=== PATIENT | female | born 2000 | race Caucasian/White ===

== ENCOUNTER 2018-09-17 13:38 | Emergency (ER) | payer BC ==
[~2018-09-17] VITALS: Ht 175.3 cm; Wt 110.5 kg
[2018-09-17 13:59] VITALS: TEMP 98.4
[2018-09-17] MEDS ORDERED: SPRINTEC 35 MCG1 TAB PO (14:25)
[2018-09-17 14:37] LABS: COLLECTION METHOD CLEAN CATCH
[2018-09-17 14:49] LABS: MUCOUS Present /lpf; PH 5 (5-8); URINE APPEARANCE Hazy; URINE BACTERIA None Seen /hpf; URINE BILIRUBIN Negative (NEGATIVE); URINE BLOOD Negative (NEGATIVE); URINE COLOR Yellow; URINE GLUCOSE Negative (NEGATIVE); URINE KETONE Negative (NEGATIVE); URINE LEUKOCYTE ESTERASE Trace (NEGATIVE); URINE NITRATE Negative (NEGATIVE); URINE PROTEIN(semi-quant) Negative (NEGATIVE); URINE RBC 0-2 /hpf; URINE UROBILINOGEN Negative (NEGATIVE)
[2018-09-17 16:18] LABS: ALBUMIN 3.9 gm/dL (3.5-5.0); BILIRUBIN,TOTAL 0.6 mg/dL (0.0-1.0); CALCIUM 9.1 mg/dL (8.4-10.2); CREATININE, serum 0.56 (0.52-1.25); POTASSIUM 3.9 mmol/L (3.4-5.0); TOTAL PROTEIN 7.1 gm/dL (6.4-8.2)
[2018-09-17 16:21] LABS: BASO % 0.5 % (0.0-2.0); EOS # 0.2 (0.0-0.7); EOS % 1.8 % (0-4.0); GRAN # 5.2 (1.4-6.5); GRAN % 62.6 % (42.2-75.2); HEMATOCRIT 37.9 % (35.0-45.0); HEMOGLOBIN 12.3 g/dl (12.0-15.0); LYMPH # 2.5 (1.2-3.4); LYMPH % 29.5 % (20.0-51.0); MEAN CELL VOLUME 84 fl (80.0-95.0); MEAN CORPUSCULAR HEMOGLOBIN 27 pg (26.0-32.0); MEAN CORPUSCULAR HGB CONC 33 g/dl (33.0-37.0); MEAN PLATELET VOLUME 10.1 fl (7.4-10.4); MONO # 0.4 (0.1-0.6); MONO % 5.2 % (1.7-9.3); PLATELET COUNT 267 K/mm3 (130-400); RED BLOOD COUNT 4.49 M/mm3 (4.10-5.30); REDCELL DISTRIBUTION WIDTH-CV 13.2 % (11.5-14.5)
[2018-09-17] MEDS ORDERED: BACTRIM DS 8001 TAB PO (17:55)
[2018-09-17] MEDS ORDERED: NORCO 325 MG-51 TAB PO (17:55)
[2018-09-17 20:02] VITALS: BP 120/66; PULSE 79
== END 2018-09-17 20:04 | disposition home or self-care (01) ==
LOC: COL.ER 13:38
PROVIDERS: Nurse Practitioner Primary Care
DX: N39.0 Urinary tract infection, site not specified (principal); Z90.49 Acquired absence of other specified parts of digestive tract
CPT/HCPCS: J1885; J2270; J3360

== ENCOUNTER 2020-04-02 16:49 | Emergency (ER) | payer BC ==
[~2020-04-02] VITALS: Ht 175.3 cm; Wt 113.6 kg
[~2020-04-02 16:49] MED LIST: BACTRIM DS 8001 TAB PO; NORCO 325 MG-51 TAB PO; SPRINTEC 35 MCG1 TAB PO
[2020-04-02 16:59] VITALS: TEMP 98.6
[2020-04-02 17:49] LABS: COLLECTION METHOD CLEAN CATCH
[2020-04-02 17:53] LABS: BASO % 0.4 % (0.0-2.0); EOS # 0.3 (0.0-0.7); EOS % 3.4 % (0-4.0); GRAN # 4.7 (1.4-6.5); HEMATOCRIT 37.6 % (37.0-47.0); HEMOGLOBIN 12.2 g/dl (12.5-16.0); LYMPH # 2.8 (1.2-3.4); LYMPH % 33.6 % (20.0-51.0); MEAN CELL VOLUME 81 fl (80.0-100.0); MEAN CORPUSCULAR HEMOGLOBIN 26 pg (27.0-31.0); MEAN CORPUSCULAR HGB CONC 32 g/dl (33.0-37.0); MEAN PLATELET VOLUME 9.9 fl (7.4-10.4); MONO # 0.5 (0.1-0.6); MONO % 6.5 % (1.7-9.3); PLATELET COUNT 269 K/mm3 (130-400); RED BLOOD COUNT 4.65 M/mm3 (4.10-5.30); REDCELL DISTRIBUTION WIDTH-CV 14.6 % (11.5-14.5)
[2020-04-02 17:56] LABS: MUCOUS Present /lpf; PH 5 (5-8); URINE APPEARANCE Hazy; URINE BACTERIA None Seen /hpf; URINE BILIRUBIN Negative (NEGATIVE); URINE BLOOD Negative (NEGATIVE); URINE COLOR Yellow; URINE GLUCOSE Negative (NEGATIVE); URINE KETONE 1+ (NEGATIVE); URINE LEUKOCYTE ESTERASE Negative (NEGATIVE); URINE NITRATE Negative (NEGATIVE); URINE PROTEIN(semi-quant) Negative (NEGATIVE); URINE UROBILINOGEN Negative (NEGATIVE)
[2020-04-02 18:28] LABS: ALBUMIN 4.4 gm/dL (3.5-5.0); BILIRUBIN,TOTAL 0.9 mg/dL (0.0-1.0); C-REACTIVE PROTEIN 3.9 mg/dL (0.0-0.9); CALCIUM 9.2 mg/dL (8.4-10.2); CREATININE, serum 0.6 (0.52-1.25); POTASSIUM 3.5 mmol/L (3.4-5.0); TOTAL PROTEIN 7.7 gm/dL (6.4-8.2)
[2020-04-02 21:20] VITALS: BP 120/80; PULSE 80
== END 2020-04-02 21:20 | disposition home or self-care (01) ==
LOC: COL.ER 16:49
PROVIDERS: Nurse Practitioner Primary Care
DX: R10.31 Right lower quadrant pain (principal); Z90.49 Acquired absence of other specified parts of digestive tract; Z32.02 Encounter for pregnancy test, result negative
CPT/HCPCS: J7030

== ENCOUNTER 2021-06-24 17:32 | Outpatient (CLI) | payer BC ==
[~2021-06-24] VITALS: Ht 172.7 cm; Wt 116.4 kg
--- NOTE | 2021-06-24 17:40 | NUR ---
Patient ambulatory to LR3 with spouse, changed into gown, FHR/TOCO monitors applied. Patient states "Tuesday night I started having sharp pains in my vagina and then went away and came back this morning, Madelin had a headache, some burning with peeing, and threw up over lunch, and have had a cough". Denies any leaking of fluid, vaginal bleeding, or regular contractions. Plan of care discussed. SVE 0-1/thick/high Roles at nurses station and orders for UA, CBC, 1000ml of NS-500bolus, 1g of tylenol. Update with results. 1819: IV started in right hand, lab obtained, flushed. Report given to Naty WELSH.
[2021-06-24] MEDS ORDERED: PRENATAL TABLET PO (17:56)
[2021-06-24] MEDS ORDERED: TYLENOL 500MG500 MG PO (17:57)
[2021-06-24] MEDS ORDERED: PROBIOTIC BLEN1 EACH PO (17:57)
[2021-06-24] MEDS ORDERED: ASPIRIN 81M81 MG/TA2 PO (17:57)
[2021-06-24 18:15] VITALS: BP 119/57; PULSE 133; TEMP 101.7
[2021-06-24 18:28] LABS: COLLECTION METHOD CLEAN CATCH
[2021-06-24 18:30] VITALS: PULSE 122
[2021-06-24 18:34] LABS: BASO % 0.3 % (0.0-2.0); EOS % 0.3 % (0.0-4.0); GRAN # 6.7 K/mm3 (1.4-6.5); GRAN % 87.1 % (42.2-75.2); HEMOGLOBIN 10.5 g/dl (12.5-16.0); LYMPH # 0.5 K/mm3 (1.2-3.4); LYMPH % 6.8 % (20.0-51.0); MEAN CELL VOLUME 85 fl (80.0-100.0); MEAN CORPUSCULAR HEMOGLOBIN 29 pg (27-31); MEAN CORPUSCULAR HGB CONC 34 g/dl (33.0-37.0); MEAN PLATELET VOLUME 10.2 fl (7.4-10.4); MONO # 0.4 K/mm3 (0.1-0.6); MONO % 5.2 % (1.7-9.3); PLATELET COUNT 196 K/mm3 (130-400); RED BLOOD COUNT 3.68 M/mm3 (4.10-5.30); REDCELL DISTRIBUTION WIDTH-CV 13.4 % (11.5-14.5)
[2021-06-24 18:35] LABS: HEMATOCRIT 31.2 % (37.0-47.0)
[2021-06-24 18:37] LABS: MUCOUS Present (NOT PRESENT); PH 7 (5-8); SQUAMOUS EPITHELIAL 0-2 /hpf (0-10); URINE APPEARANCE Hazy (CLEAR/HAZY); URINE BACTERIA None Seen /hpf (NONE SEEN); URINE BILIRUBIN Negative (NEGATIVE); URINE BLOOD Negative (NEGATIVE); URINE COLOR Yellow (YELLOW); URINE GLUCOSE Negative (NEGATIVE); URINE KETONE 1+ (NEGATIVE); URINE LEUKOCYTE ESTERASE 1+ (NEGATIVE); URINE NITRATE Negative (NEGATIVE); URINE PROTEIN(semi-quant) Negative (NEGATIVE); URINE RBC 0-2 /hpf (0-2); URINE UROBILINOGEN Negative (NEGATIVE); URINE WBC 0-2 /hpf (0-2)
--- NOTE | 2021-06-24 18:58 | NUR ---
1857- PT UP TO BATHROOM, LR FLUIDS INFUSING, TYLENOL PO GIVEN. PT UP DATED ON PLAN OF CARE AND QUESTIONS ANSWERED. 1939- ROLES AT DESK AND IS UPDATED ON HOW PT IS CURRENTLY FEELING. TEMP 99.8. REVIEWS EFM STRIP AND LABWORK, ORDERS RECEIVED. 1999- EFM OFF FOR DISMISSAL. PT UP TO BATHROOM. 2034- DISMISSAL INSTRUCTIONS GIVEN AND PT VERBALIZES UNDERSTANDING. IV SITE DC'D WITH CANULA INTACT. PT DENIES FURTHER NEEDS OR QUESTIONS. 2044- PT DISMISSED TO HOME AMBULATORY ACCOMPANIED BY .
[2021-06-24 19:00] VITALS: PULSE 122
[2021-06-24 19:30] VITALS: PULSE 125
[2021-06-24 20:00] VITALS: PULSE 114
== END 2021-06-24 20:45 | disposition home or self-care (01) ==
LOC: LDRO 17:32 → LDR 17:50 → LDRO 20:45
PROVIDERS: Obstetrics & Gynecology
DX: O26.892 Other specified pregnancy related conditions, second trimester (principal); R10.2 Pelvic and perineal pain; R51.9 Headache, unspecified; Z3A.26 26 weeks gestation of pregnancy
CPT/HCPCS: OP; J7030

== ENCOUNTER 2021-08-02 22:05 | Outpatient (CLI) | payer BC ==
[~2021-08-02] VITALS: Ht 175.3 cm; Wt 112.3 kg
[~2021-08-02 22:05] MED LIST changes: +ASPIRIN 81M81 MG/TA2 PO; +PRENATAL TABLET PO; +PROBIOTIC BLEN1 EACH PO; +TYLENOL 500MG500 MG PO
--- NOTE | 2021-08-02 22:10 | NUR ---
2210- PT PRESENTS TO LDR COMPLAINING OF DECREASED MOVEMENT X3 HOURS, AMBULATORY TO ROOM LR4, TO BED. 2212- EFM X2 APPLIED. PT DENIES LEAKING FLUID, VAGINAL BLEEDING, OR CONTRACTIONS. STATES SHE HAS BEEN TRYING TO DO HER KICK COUNTS THIS EVENING WITH A TOTAL OF 5 MOVEMENTS IN 3 HOURS. SHE HAS TRIED DRINKING WATER AND APPLE JUICE WITH NO IMPROVEMENT. 2220- DURING FIRST 8 MINUTES OF MONITORING, NURSE HAS BEEN AT BEDSIDE AND HEARD 3 MOVEMENTS ON MONITOR. PT REPLIES "NOT REALLY" WHEN ASKED IF SHE FELT THE MOVEMENTS. NURSING ADMISSION HISTORY AND ASSESSMENT COMPLETE. 2230- 2 MORE MOVEMENTS HEARD ON MONITOR BY THIS TIME. PT REPLIES "KIND OF" WHEN ASKED IF SHE FELT THESE MOVEMENTS. 2234- DR ROBBINS CALLED CHARTED, ORDERS RECEIVED FOR DISMISSAL TO HOME. 2240- PT OFF MONITORS FOR DISMISSAL, KICK COUNTS DISCUSSED IN DEPTH AND QUESTIONS ANSWERED. 2250- DISMISSAL INSTRUCTIONS GIVEN AND PT VERBALIZES UNDERSTANDING. PT DISMISSED TO HOME AMBULATORY ACCOMPANIED BY SPOUSE.
[2021-08-02 22:40] VITALS: BP 125/74; PULSE 83; TEMP 98.2
== END 2021-08-02 22:50 | disposition home or self-care (01) ==
LOC: LDRO 22:05
DX: O62.9 Abnormality of forces of labor, unspecified (principal); Z3A.32 32 weeks gestation of pregnancy

== ENCOUNTER 2021-09-04 11:16 | Outpatient (CLI) | payer BC ==
[~2021-09-04] VITALS: Ht 172.7 cm; Wt 115.9 kg
[2021-09-04] VITALS (8 sets, daily range): BP systolic 111–140; BP diastolic 58–80; PULSE 84–106; TEMP 98.5
--- NOTE | 2021-09-04 11:25 | NUR ---
Presents to L&D, ambulatory, with concerns for leaking of fluid for 3 days. Reports recent sexual intercourse within past 48 hours, denies having had to wear a marlon pad. Reports she had some spotting following SVE on Tuesday's appointment. Discussed that she may experience some spotting again after today's exam. Amnitrace swab explained to patient, as well as unable to use gel with SVE. Verbalizes understanding. C/O some pressure when she is walking, states, "it feels like she is going to drop out." Following SVE (/-3, dry), discussed head is not yet well engaged. Denies any urinary symptoms, fever, chills. Patient reports they were supposed to check protien in urine at last exam, but office forgot. Urine collected in case wanting to check protein, as noted initial slightly elevated BP, and 1-2 plus pitting edema in legs bilat. Patient denies any headache or right upper gastric pain.
--- NOTE | 2021-09-04 12:33 | NUR ---
Allowed off of EFM at this time, after noting Category I reactive monitor strip. Importance of adequate hydration stressed, as noted, patient drank 1.5 jugs of water prior to obtaining reactive strip. Verbalizes understanding.
== END 2021-09-04 12:35 | disposition home or self-care (01) ==
LOC: LDRO 11:16
DX: Z34.93 Encounter for supervision of normal pregnancy, unspecified, third trimester (principal); Z3A.36 36 weeks gestation of pregnancy

== ENCOUNTER 2021-09-10 17:19 | Outpatient (CLI) | payer BC ==
[~2021-09-10] VITALS: Ht 172.7 cm; Wt 117.3 kg
[2021-09-10 17:40] VITALS: BP 123/70; PULSE 81; TEMP 98.4
--- NOTE | 2021-09-10 17:46 | NUR ---
1740 PATIENT HERE FROM HOME. STATES HAS BEEN HAVING CONTRACTIONS FOR SEVERAL DAYS BUT IS FEELING TONS OF PRESSURE. ASSESSMENT COMPLETED. SVE BY Renato THOMAS RN. /-2 BAG OF WATER FELT. NO BLEEDING NOTED. DR DE LOS SANTOS CALLED AND UPDATED AND ORDERS TO WATCH FOR HOUR IF NO CHANGES MAY DISMISS TOT HOME.
[2021-09-10 18:15] VITALS: BP 107/57; PULSE 81; TEMP 97.6
--- NOTE | 2021-09-10 18:48 | NUR ---
PT MAYBE DISCHARGED TO HOME WITH LABOR PRECAUTIONS/INSTRUCTIONS. RETURN IF LEAKING FLUID, SROM, BLEEDING. REGULAR STRONG UC'S.
[2021-09-10 18:57] VITALS: BP 119/69; PULSE 89; TEMP 98.3
== END 2021-09-10 19:20 | disposition home or self-care (01) ==
LOC: LDRO 17:19 → LDR 17:40 → LDRO 19:20
DX: O62.9 Abnormality of forces of labor, unspecified (principal); Z3A.37 37 weeks gestation of pregnancy

== ENCOUNTER 2021-09-14 14:30 | Outpatient (CLI) | payer BC ==
[~2021-09-14] VITALS: Ht 172.7 cm; Wt 117.3 kg
[2021-09-14 14:45] VITALS: BP 130/77; PULSE 93; TEMP 97.9
[2021-09-14 15:00] VITALS: BP 127/75; PULSE 93
[2021-09-14 15:15] VITALS: BP 125/75; PULSE 100
[2021-09-14 15:30] VITALS: BP 120/72; PULSE 84
[2021-09-14 15:45] VITALS: BP 124/73; PULSE 84
== END 2021-09-14 16:15 | disposition home or self-care (01) ==
LOC: LDRO 14:30 → LDR 14:45 → LDRO 16:15
DX: O36.8130 Decreased fetal movements, third trimester, not applicable or unspecified (principal); Z3A.38 38 weeks gestation of pregnancy
CPT/HCPCS: OP; J7120

== ENCOUNTER 2021-09-19 23:10 | Outpatient (CLI) | payer BC ==
[~2021-09-19] VITALS: Ht 177.8 cm; Wt 117.7 kg
[2021-09-19 00:05] VITALS: BP 130/73; PULSE 93; TEMP 97.9
[2021-09-20 00:12] VITALS: TEMP 97.9
[2021-09-20 00:30] VITALS: BP 122/66; PULSE 84
[2021-09-20] MEDS ORDERED: MOTRIN 800800 MG/TAB PO (12:15)
== END 2021-09-20 01:40 ==
LOC: LDRO 23:10
DX: O62.9 Abnormality of forces of labor, unspecified (principal); Z3A.00 Weeks of gestation of pregnancy not specified

== ENCOUNTER 2021-09-20 07:00 | Inpatient (IN) | payer BC ==
[~2021-09-20] VITALS: Ht 177.8 cm; Wt 117.7 kg
[2021-09-20] VITALS (27 sets, daily range): BP systolic 105–136; BP diastolic 51–90; PULSE 70–116; TEMP 97.8–98.3
--- NOTE | 2021-09-20 08:30 | NUR ---
0758 PATIENT HERE FROM HOME. STATES CONTRACTIONS ARE GETTING MORE INTENSE. EFM FHT 130 BABY VERY ACTIVE. OCCASIONAL CONTRACTIONS NOTED. SVE /-[address] HUNTER CALLED AND ORDERS TO ADMIT TO LABOR.
[2021-09-20 08:33] LABS: BASO % 0.3 % (0.0-2.0); EOS # 0.1 K/mm3 (0.0-0.7); EOS % 1.3 % (0.0-4.0); GRAN # 6.8 K/mm3 (1.4-6.5); GRAN % 69.8 % (42.2-75.2); HEMOGLOBIN 11.8 g/dl (12.5-16.0); LYMPH # 2.3 K/mm3 (1.2-3.4); LYMPH % 23.2 % (20.0-51.0); MEAN CELL VOLUME 85 fl (80.0-100.0); MEAN CORPUSCULAR HEMOGLOBIN 28 pg (27-31); MEAN CORPUSCULAR HGB CONC 33 g/dl (33.0-37.0); MEAN PLATELET VOLUME 10.6 fl (7.4-10.4); MONO # 0.5 K/mm3 (0.1-0.6); MONO % 5.2 % (1.7-9.3); PLATELET COUNT 210 K/mm3 (130-400); RED BLOOD COUNT 4.24 M/mm3 (4.10-5.30); REDCELL DISTRIBUTION WIDTH-CV 14.3 % (11.5-14.5)
[2021-09-20 08:39] LABS: HEMATOCRIT 35.9 % (37.0-47.0)
--- NOTE | 2021-09-20 09:23 | NUR ---
0810 DR HUNTER AT BEDSIDE. SVE /-2 AROM WITH AMNIOHOOK. LARGE AMOUNT CLEAR FLUID.
--- NOTE | 2021-09-20 09:35 | NUR ---
0900 PATIENT SITS UP ON EDGE OF BED FOR EPIDURAL. MONSE COOK AT BEDSIDE. PATIENT TOLERATES WELL. SEE SURGICAL SCRUB TECH NOTES FOR QUESTIONS.
[2021-09-20] MEDS ORDERED: MOTRIN 800800 MG/TAB PO (12:15)
--- NOTE | 2021-09-20 13:12 | NUR ---
[address] HUNTER AT BEDSIDE. PUSHES WITH EACH CONTRACTION. 1152 BABY GIRL BORN VIA BY DR HUNTER. BABY TO MOMS CHEST. CORD CLAMPED AND CUT BY STRONG CRY NOTED. 1154 PLACENTA DELIVERED. PITOCIN STARTED AT 333/HR PER PROTOCOL. FUNDUS FIRM MODERATE BLEEDING NOTED. REPAIR DOEN BY PATIENT TOLERATES.WELL. BABY REMIAN SON MOMS CHEST. 1200 PLACENTA SENT OFF FOR 2 VESSEL CORD AND COVID DURING PREGNACY.
[2021-09-21 00:50] VITALS: BP 105/47; PULSE 87; TEMP 98
[2021-09-21 04:45] VITALS: BP 131/84; PULSE 92; TEMP 98.1
[2021-09-21 08:00] VITALS: BP 109/59; PULSE 92; TEMP 97.9
--- NOTE | 2021-09-21 18:37 | NUR ---
1837- PT ESCORTED TO DOOR WITH BABY AND BELONGINGS. ACCOMPANIED BY THIS RN AND .
== END 2021-09-21 18:37 | disposition home or self-care (01) | DRG 807 ==
LOC: LDRO 07:00 → LDR 07:37 → OB 14:51
PROVIDERS: ADMIT Obstetrics & Gynecology
PROC: 10E0XZZ Delivery of Products of Conception, External Approach (ICD-10-PCS; principal; 2021-09-20)
PROC: 0KQM0ZZ Repair Perineum Muscle, Open Approach (ICD-10-PCS; 2021-09-20)
PROC: 0UQMXZZ Repair Vulva, External Approach (ICD-10-PCS; 2021-09-20)
DX: O99.02 Anemia complicating childbirth (principal); Z37.0 Single live birth; O70.1 Second degree perineal laceration during delivery; O71.82 Other specified trauma to perineum and vulva; D64.9 Anemia, unspecified; O99.214 Obesity complicating childbirth; O35.8XX0 Maternal care for other (suspected) fetal abnormality and damage, not applicable or unspecified; Z3A.39 39 weeks gestation of pregnancy; Z86.16 Personal history of COVID-19
CPT/HCPCS: J2590; J7120

== ENCOUNTER → 2021-09-22 | Outpatient (CLI) | payer BC ==
[~2021-09-22] MED LIST changes: +MOTRIN 800800 MG/TAB PO
--- NOTE | 2021-09-22 16:14 | NUR ---
Pt, Sonal Owens, presents to walk-in clinic with 2 day old baby girl, Imelda Owens, and her spouse Julian Owens. Pt states she is concerned Imelda is not getting enough to eat, that she does not have milk in yet. Imelda was born on [birth year] and wighed 7# 0.2oz (3180 gms). They discharged after 24 hours of age and discharge weight was 6#15oz. Pt states she was concerned Imelda had not voided for over 12 hours so she gave her 30ml formula by bottle. At this appt she had a dime size transition stool and a good size void that had urate crystals present. Pt places Imelda to left breast without assistance. She has a weight gain of 8 gms after the left. LC instructs on cross cradle to get a little more areola into baby's mouth but Imelda is less interested and does not nurse well. Pt tries a few different latches but Imelda only has an additional gain of 2 gms for a total transfer of 10ml breastmilk. Pt verbalizes worries about Imelda not latching well in the noc, jaundice, and perceived low output (but WNL). To help pt feel comfortable with milk supply status and Imelda's intake, discusses option to offer breast each feeding and if she is not feeling Imelda did well pt can follow with 15-30ml expressed colostrum/milk and pumping. Pt verbalizes understanding of baseline voids, stools, and milk supply increasing. POC: Continue offering breast each feeding. If pt feels Imelda did not nurse well for her age, she can supplement and pump as reviewed. F/U: Anticipate they will return to walk-in clinic in two days, and Imelda will have her first appt with Dr. Ball in 3 days. Questions invited and answered.
== END ==
LOC: LAC 14:22
DX: Z39.1 Encounter for care and examination of lactating mother (principal); Z71.89 Other specified counseling

== ENCOUNTER → 2021-09-24 | Outpatient (CLI) | payer BC ==
--- NOTE | 2021-09-24 13:52 | NUR ---
Pt, Sonal Owens, presents to walk-in clinic with 4 day old baby girl, Roselia Owens, and her spouse Julian. They were seen two days age, before milk supply was established. Roselia was born on [birth year] and weighed 7# 0.2oz (3181 gms). At clinic two days ago she weighed 6#8.2oz (2954 gms). Today Roselia weighs 6# 10.1oz (3008 gms), for a gain of 1.9oz (54 gms). Pt states her milk came in later the same day she was at clinic, that Roselia's voids and stools are meeting or exceeding the daily expectations and that the stools are now yellow. She also states that she is pumping after breastfeedings to help augment milk production, collecting about 2oz p BF. After independantly Roselia has a weight gain of 2.2oz (62 gms). Discussed reducing pumping to 2-3 times daily, or even discontinue for 2-3 three weeks and then resume to start saving milk for return to work. POC: Continue BF prn, pump as discussed. F/U: Dr. Ball tomorrow. Walk-in clinic as desired. Questions invited and answered.
== END ==
LOC: LAC 13:27
DX: Z39.1 Encounter for care and examination of lactating mother (principal)

== ENCOUNTER → 2021-10-06 | Outpatient (CLI) | payer BC ==
--- NOTE | 2021-10-06 13:35 | NUR ---
PT, Sonal Owens, presents to walk in clinic with 15 day old baby girl, Imelda Owens, to evaluate weight and . Imelda was born on [birth year] and weighed 7# 0.2oz (3181 gms). She has been seen in this clinic on 09/22/21 and weighed 6# 8oz. And on 09/24/21 when she weighed 6#10.1oz. Pt reports Imelda weighed 6# 13oz at Dr. Ball's office on 09/25/21. Today Imelda weighs 7#8.6oz (3418 gms) for a gain of 11.6oz in 11 days. Pt reports Imelda is strictly , pt pumps TID and collections have decreased from 4-5oz per collection to 2oz per collection. After Imelda had a gain of 80 gms (2.8 oz). Discussed how milk supply changes as gets more established and that she is still collecting a good volume to give her a start before returning to work at six weeks PP. POC: Continue to BF and pump as she has been. F/u: As schedule with Dr. Ball and with walk-in clinic as desired. questions invited and answered.
== END ==
LOC: LAC 13:05
DX: Z39.1 Encounter for care and examination of lactating mother (principal)

== ENCOUNTER 2023-11-16 20:35 | Emergency (ER) | payer BC ==
[~2023-11-16] VITALS: Ht 175.3 cm; Wt 120.5 kg
[2023-11-16 20:47] VITALS: TEMP 98.2
[2023-11-16] MEDS ORDERED: NS 1,000 ML IV ONE (21:00)
[2023-11-16 21:05] LABS: COLLECTION METHOD CLEAN CATCH
[2023-11-16 21:12] LABS: PH 6.5 (5.0-8.5); URINE APPEARANCE CLEAR (CLEAR/HAZY); URINE BLOOD NEGATIVE (NEGATIVE); URINE COLOR YELLOW (YELLOW); URINE GLUCOSE NEGATIVE (NEGATIVE); URINE KETONE NEGATIVE (NEGATIVE); URINE NITRATE NEGATIVE (NEGATIVE); URINE PROTEIN(semi-quant) NEGATIVE (NEGATIVE); URINE UROBILINOGEN 0.2 E.U/dL (0.2-1.0)
[2023-11-16 21:42] LABS: BASO % 0.3 % (0.0-2.0); EOS # 0.2 K/mm3 (0.0-0.7); EOS % 2.3 % (0.0-4.0); GRAN # 5.1 K/mm3 (1.4-6.5); GRAN % 55.2 % (42.2-75.2); HEMATOCRIT 37.5 % (37.0-47.0); HEMOGLOBIN 12.1 g/dl (12.5-16.0); LYMPH # 3.3 K/mm3 (1.2-3.4); LYMPH % 35.3 % (20.0-51.0); MEAN CELL VOLUME 84 fl (80.0-100.0); MEAN CORPUSCULAR HEMOGLOBIN 27 pg (27-31); MEAN CORPUSCULAR HGB CONC 32 g/dl (33.0-37.0); MEAN PLATELET VOLUME 9.8 fl (7.4-10.4); MONO # 0.6 K/mm3 (0.1-0.6); MONO % 6.7 % (1.7-9.3); PLATELET COUNT 235 K/mm3 (130-400); RED BLOOD COUNT 4.46 M/mm3 (4.10-5.30); REDCELL DISTRIBUTION WIDTH-CV 13.6 % (11.5-14.5)
[2023-11-16 22:02] LABS: ALBUMIN 3.7 g/dL (3.5-5.0); BILIRUBIN,TOTAL 0.7 mg/dL (0.2-1.2); C-REACTIVE PROTEIN 0.91 mg/dL (0.00-0.50); CALCIUM 9.2 mg/dL (8.4-10.2); CREATININE, serum 0.71 mg/dL (0.57-1.11); POTASSIUM 3.9 mEq/L (3.5-4.5); TOTAL PROTEIN 6.9 g/dl (6.2-8.1)
[2023-11-16] MEDS ORDERED: Ketorolac 30 MG/ML VIAL IV ONE (22:15)
[2023-11-16] MEDS ORDERED: Iohexol 300 - 100 ML VIAL IV ONE (22:18)
[2023-11-16] MEDS ORDERED: NS 100 ML IV ONE (22:19)
[2023-11-16] MEDS ORDERED: NAPROSYN500 MG PO (23:00)
[2023-11-16 23:10] VITALS: BP 115/58; PULSE 85
== END 2023-11-16 23:10 | disposition home or self-care (01) ==
LOC: COL.ER 20:35
PROVIDERS: Emergency Medicine
DX: N83.201 Unspecified ovarian cyst, right side (principal)
CPT/HCPCS: J1885; J7030; Q9967